=== PATIENT | male | born 1930 | race Caucasian/White ===

== ENCOUNTER 2019-04-17 18:17 | Emergency (ER) | payer OTHER ==
[~2019-04-17] VITALS: Ht 170.2 cm; Wt 70.3 kg
[2019-04-17 18:17] VITALS: BP_SYST 164
--- NOTE | 2019-04-17 18:17 | NUR ---
BROUGHT BACK TO BED #1 AND TRIAGED. REPORT GIVEN TO FATMATA
--- NOTE | 2019-04-17 18:20 | NUR ---
Pt AAOx4 BIB BLS from [facility] c/o R shoulder pain s/p mechanical trip and fall prior to arrival. Swelling noted to R shoulder, able to bend and lift arm above head. 8/10 Pain. No other injuries/complaints per pt/noted. Will continue to monitor.
--- NOTE | 2019-04-17 18:22 | NUR ---
ER Dr. Hu at bedside examining patient.
[2019-04-17] MEDS ORDERED: IBUPROFEN 600 MG TABLET PO ONE (18:30)
--- NOTE | 2019-04-17 18:31 | NUR ---
Radiology at bedside
--- NOTE | 2019-04-17 18:33 | NUR ---
SPOKE WITH PTS SON WILLIE AND HE WILL BE COMING TO ER.
--- NOTE | 2019-04-17 18:42 | NUR ---
PTS SON IS HERE DR ELIZABETH TAPIA AT BEDSIDE SPEAKING WITH PT AND PTS SON RE:RESULTS OF XRAYS
--- NOTE | 2019-04-17 19:00 | NUR ---
Patient given written and verbal discharge instructions and verbalizes understanding. ER MD Hu discussed with patient the results and treatment provided. Patient in stable condition. ID arm band removed. Rx of Ibuprofen given. Patient educated on pain management and to follow up with PMD. Pain Scale 2. Opportunity for questions provided and answered. Medication side effect fact sheet provided.
== END 2019-04-17 19:11 | disposition home or self-care (01) ==
LOC: SED 18:17
DX: S42.291A Other displaced fracture of upper end of right humerus, initial encounter for closed fracture (principal); I10 Essential (primary) hypertension; E11.9 Type 2 diabetes mellitus without complications; W01.0XXA Fall on same level from slipping, tripping and stumbling without subsequent striking against object, initial encounter; Y93.89 Activity, other specified; Y92.89 Other specified places as the place of occurrence of the external cause; Y99.8 Other external cause status
CPT/HCPCS: 73030; 99283; J7030